=== PATIENT | female | born 1995 | race African-American/Black ===

== ENCOUNTER 2019-05-03 21:42 | Emergency (ER) | payer MEDICAID ==
[~2019-05-03] VITALS: Ht 160 cm; Wt 88.0 kg
[2019-05-04] MEDS ORDERED: VISCOUS LIDOCAINE 2% 15 ML UDC MM STA (00:06)
[2019-05-04] MEDS ORDERED: KETOROLAC 60MG/2ML VIAL IM ONE (00:15)
[2019-05-04] MEDS ORDERED: MAGNESIUM/ALUMINUM HYDROXIDE/SIMETHICONE 30ML UDC PO ONE (00:15)
[2019-05-04 00:44] LABS: CLARITY URINE CLEAR (CLEAR); COLOR URINE YELLOW (YELLOW); KETONES URINE NEGATIVE (NEGATIVE); LEUKOCYTE ESTERASE URINE NEGATIVE (NEGATIVE); NITRITE URINE NEGATIVE (NEGATIVE); OCCULT BLOOD URINE TRACE (NEGATIVE); PROTEIN URINE NEGATIVE (NEGATIVE); SPECIFIC GRAVITY URINE 1.006 (1.005-1.030); UROBILINOGEN URINE 0.2 E.U./dL (0.2-1.0)
[2019-05-04 02:49] VITALS: BP 115/81
== END 2019-05-04 03:15 | disposition home or self-care (01) ==
LOC: ER 05-04 01:11
DX: R07.89 Other chest pain (principal); I10 Essential (primary) hypertension; Z98.890 Other specified postprocedural states
CPT/HCPCS: 71045; 81003; 81025; 93005; 99284